=== PATIENT | female | born 1955 | race Caucasian/White ===

== ENCOUNTER → 2016-06-27 | Day surgery (SDC) | payer OTHER | LOC: RAD 12:59 | PROVIDERS: ATTEND Orthopaedic Surgery | PROC: BP0MZZZ Plain Radiography of Left Wrist (ICD-10-PCS; principal; 2016-06-27) | DX: S63.592A Other specified sprain of left wrist, initial encounter (principal); X58.XXXA Exposure to other specified factors, initial encounter; M25.532 Pain in left wrist | CPT/HCPCS: 73222; 73115; 77002; A9576 ==

== ENCOUNTER 2017-04-25 16:23 | Emergency (ER) | payer OTHER ==
--- NOTE | 2017-04-25 16:56 | ER Document Report ---
ED Medical Screen (RME) - General Chief Complaint: Irregular Pulse Stated Complaint: IRREGULAR HEARTBEAT Time Seen by Provider: 04/25/17 16:47 Notes: This 7-year-old female patient past medical history of hypertension type 2 diabetes with no history of coronary artery disease. No family history coronary artery disease. She developed a fast irregular heartbeat yesterday evening it lasted all night long with rates up to 159. It was 132 at the doctor 's office this afternoon. An EKG there showed atrial fibrillation with RVR. She had converted to normal sinus rhythm by the time she arrived into the emergency room. She did have chest tightness and pain during the rapid heart rate through the evening and this morning. Symptoms have gone now that she is back in a normal sinus rhythm. She has never had this in the past. She has never been a smoker. I have greeted and performed a rapid initial assessment of this patient. A comprehensive ED assessment and evaluation of the patient, analysis of test results and completion of the medical decision making process will be conducted by additional ED providers. TRAVEL OUTSIDE OF THE [place] IN LAST 30 DAYS: No - Related Data Allergies/Adverse Reactions: codeine Allergy (Verified 04/25/17 16:30) Past Medical History - Social History Chew tobacco use (# tins/day): No Frequency of alcohol use: None Drug Abuse: None - Past Medical History Cardiac Medical History: Reports: Hx Hypertension Endocrine Medical History: Reports: Hx Diabetes Mellitus Type 2 Renal/ Medical History: Denies: Hx Peritoneal Dialysis Past Surgical History: Reports: Hx Abdominal Surgery - mass in lower ab Physical Exam - Vital signs Vitals: Temp Pulse Resp BP Pulse Ox 97.9 F 81 20 141/78 H 98 04/25/17 16:38 04/25/17 16:38 04/25/17 16:38 04/25/17 16:38 04/25/17 16:38 Course - Vital Signs Vital signs: Temp Pulse Resp BP Pulse Ox 97.9 F 81 20 141/78 H 98 04/25/17 16:38 04/25/17 16:38 04/25/17 16:38 04/25/17 16:38 04/25/17 16:38
--- NOTE | 2017-04-25 17:16 | ER Document Report ---
ED Cardiac - General Chief Complaint: Irregular Pulse Stated Complaint: IRREGULAR HEARTBEAT Time Seen by Provider: 04/25/17 16:47 Notes: The patient is a 61-year-old female, past medical history hypertension, IDDM, presents from her primary care office after she was having palpitations for 12 hours feeling like her heart was racing and was found to be in new onset A. fib with RVR. By the time she got to the ER, she said her palpitations resolved and she was found to be in normal sinus rhythm. Denies chest pain, shortness of breath, leg swelling, fevers, cough, back pain, abdominal pain, nausea, vomiting, numbness, tingling or syncope. TRAVEL OUTSIDE OF THE [place] IN LAST 30 DAYS: No - Related Data Allergies/Adverse Reactions: codeine Allergy (Verified 04/25/17 16:30) Home Medications: Current Home Medications Atenolol [Atenolol] 50 mg PO DAILY 04/25/17 [History] Hydrochlorothiazide [Hydrochlorothiazide] 25 mg PO DAILY 04/25/17 [History] Insulin Glargine,Hum.rec.anlog [Lantus Insulin 100 Unit/mL] 15 units SQ QAM 11/04 [History] Insulin Glargine,Hum.rec.anlog [Lantus Insulin 100 Unit/mL] 20 units SQ QPM 11/04 [History] Lisinopril [Lisinopril] 10 mg PO DAILY 04/25/17 [History] Past Medical History - General Information source: Patient - Social History Smoking Status: Never Smoker Chew tobacco use (# tins/day): No Frequency of alcohol use: None Drug Abuse: None Family History: Reviewed & Not Pertinent Patient has suicidal ideation: No Patient has homicidal ideation: No - Past Medical History Cardiac Medical History: Reports: Hx Hypertension Endocrine Medical History: Reports: Hx Diabetes Mellitus Type 2 Renal/ Medical History: Denies: Hx Peritoneal Dialysis Past Surgical History: Reports: Hx Abdominal Surgery - mass in lower ab Review of Systems - Review of Systems Notes: REVIEW OF SYSTEMS: CONSTITUTIONAL: -fevers, -chills EENT: -eye pain, -difficulty swallowing, -nasal congestion CARDIOVASCULAR: -chest pain, -syncope, +palpitations RESPIRATORY: -cough, -SOB GASTROINTESTINAL: -abdominal pain, - nausea, -vomiting, -diarrhea GENITOURINARY: -dysuria, -hematuria MUSCULOSKELETAL: -back pain, -neck pain SKIN: -rash or skin lesions. HEMATOLOGIC: -easy bruising or bleeding. LYMPHATIC: -swollen, enlarged glands. NEUROLOGICAL: -altered mental status or loss of consciousness, -headache, - neurologic symptoms PSYCHIATRIC: -anxiety, -depression. ALL OTHER SYSTEMS REVIEWED AND NEGATIVE. Physical Exam - Vital signs Vitals: Temp Pulse Resp BP Pulse Ox 97.9 F 81 20 141/78 H 98 04/25/17 16:38 04/25/17 16:38 04/25/17 16:38 04/25/17 16:38 04/25/17 16:38 - Notes Notes: PHYSICAL EXAMINATION: GENERAL: Well-appearing, well-nourished and in no acute distress. HEAD: Atraumatic, normocephalic. EYES: Pupils equal round and reactive to light, extraocular movements intact, sclera anicteric, conjunctiva are normal. ENT: nares patent, oropharynx clear without exudates. Moist mucous membranes. NECK: Normal range of motion, supple without lymphadenopathy LUNGS: Breath sounds clear to auscultation bilaterally and equal. No wheezes rales or rhonchi. HEART: Regular rate and rhythm without murmurs ABDOMEN: Soft, nontender, normoactive bowel sounds. No guarding, no rebound. No masses appreciated. EXTREMITIES: Normal range of motion, no pitting or edema. No cyanosis. NEUROLOGICAL: Cranial nerves grossly intact. Normal speech, normal gait. Normal sensory and motor exams. PSYCH: Normal mood, normal affect. SKIN: Warm, Dry, normal turgor, no rashes or lesions noted. Course - Re-evaluation Re-evalutation: Patient with new onset A. fib with RVR for about 12 hours that spontaneously converted prior to arrival in the ER. She is completely asymptomatic. Her blood work is unremarkable, other than hypomagnesemia (which was corrected in the ER). First troponin was 0.02, patient has no chest pain and this may have been a slight bump from her A. fib with RVR incident. 04/25/17 18:[address] Mascorro (Functional Mental Disability Teacher industry consultant) and he recommends increasing patient's atenolol to 50 mg in the morning and 25 mg in the evening. Also, patient's CHAD2-VASC score is 3 and he recommends beginning patient on Eliquiis or Coumadin. Spoke to patient about risks and benefits of both drugs and she would like to begin Eliquiis. Provided patient with Dr. Mascorro's cell phone number and instructed her to call his office tomorrow for an appointment and call his cell phone if unable to obtain an appointment. - Vital Signs Vital signs: Temp Pulse Resp BP Pulse Ox 97.9 F 81 20 141/78 H 98 04/25/17 16:38 04/25/17 16:38 04/25/17 16:38 04/25/17 16:38 04/25/17 16:38 - Laboratory Result Diagrams: 04/25/17 17:02 04/25/17 17:02 Laboratory results interpreted by me: 04/25/17 17:02 Glucose 165 H Magnesium 1.4 L AST 49 H ALT 83 H - Diagnostic Test Radiology reviewed: Image reviewed, Reports reviewed Radiology results interpreted by me: CXR: NAD - EKG Interpretation by Me EKG shows normal: Sinus rhythm, Dawn, Intervals, QRS Complexes, ST-T Waves Rate: Normal Discharge - Discharge Clinical Impression: Hypomagnesemia Atrial fibrillation Qualifiers: Atrial fibrillation type: paroxysmal Qualified Code(s): I48.0 - Paroxysmal atrial fibrillation Condition: Stable Disposition: HOME, SELF-CARE Additional Instructions: Call Dr. Grajeda's office for an appointment. If you are able to get an appointment with the office, call his cell phone ([phone]). Take 50 mg Atenolol in the morning and 25 mg Atenolol in the evening. Also, take 5 mg Eliquiis twice daily as a blood thinner. Return to the ER if you have any worsening symptoms. Atrial Fibrillation Atrial fibrillation is an abnormal heart rhythm, caused by irregular electrical circuits in the upper heart chamber. It can be caused by heart valve disease, hardening of the arteries, or metabolic problems such as thyroid disease, or may occur without a clear cause. Atrial fibrillation may occur only occasionally, or may be chronic. Atrial fibrillation often results in a very fast heart rate, with palpitations, lightheadedness, and shortness of breath. Treatment is to slow the abnormally fast rate, and to convert the rhythm back to normal, if possible. Many patients stay in atrial fibrillation for years without symptoms or complications. Your doctor will decide whether you can be converted back to a normal heart rhythm. Contact the doctor or emergency medical system at once if you develop chest pain, shortness of breath, or severe lightheadedness, or if you develop any disturbance of consciousness, problems with speech, or localized weakness. Prescriptions: Apixaban [Eliquis 5 mg Tablet] 5 mg PO BID 7 Days tablet Atenolol [Tenormin] 25 mg PO QPM 7 Days tablet Forms: Elevated Blood Pressure Referrals: SHAW ARROYO MD [Primary Care Provider] - Follow up as needed KIMBERLY GRAJEDA MD [ACTIVE STAFF] - Follow up as needed
[2017-04-25 17:22] LABS: ABSOLUTE BASOPHILS # (AUTO) 0.1 10^3/uL (0.0-0.2); ABSOLUTE EOSINOPHILS # (AUTO) 0.1 10^3/uL (0.0-0.6); ABSOLUTE LYMPHOCYTES (AUTO) 2.3 10^3/uL (0.5-4.7); ABSOLUTE MONOCYTES (AUTO) 0.7 10^3/uL (0.1-1.4); ABSOLUTE NEUT (AUTO) 4.6 10^3/uL (1.7-8.2); BASOPHILS % (AUTO) 0.8 % (0-2); EOSINOPHILS % (AUTO) 1.7 % (0-6); HEMATOCRIT 42.2 % (36.0-47.0); HEMOGLOBIN 14.3 g/dL (12.0-15.5); HGB HCT DIFFERENCE 0.7; LYMPHOCYTES % (AUTO) 29.6 % (13-45); MEAN CORPUSCULAR HEMOGLOBIN 28.5 pg (27.0-33.4); MEAN CORPUSCULAR VOLUME 84 fl (80-97); MONOCYTES % (AUTO) 8.6 % (3-13); RED BLOOD COUNT 5.02 10^6/uL (3.72-5.28); SEGMENTED NEUTROPHILS % (AUTO) 59.3 % (42-78); WHITE BLOOD COUNT 7.7 10^3/uL (4.0-10.5)
[2017-04-25 17:28] LABS: PROTHROMBIN TIME 13.7 SEC (11.4-15.4)
[2017-04-25 17:39] LABS: ALANINE AMINOTRANSFERASE 83 U/L (9-52); ALBUMIN 3.9 g/dL (3.5-5.0); ALKALINE PHOSPHATASE 87 U/L (38-126); ANION GAP 12 (5-19); ASPARTATE AMINO TRANSFERASE 49 U/L (14-36); BILIRUBIN,DIRECT 0.4 mg/dL (0.0-0.4); BILIRUBIN,TOTAL 0.6 mg/dL (0.2-1.3); BLOOD UREA NITROGEN 16 mg/dL (7-20); CALCIUM 9.7 mg/dL (8.4-10.2); CARBON DIOXIDE 29 mmol/L (22-30); CHLORIDE 103 mmol/L (98-107); CREATINE KINASE 48 U/L (30-135); CREATININE RESULT 0.71 mg/dL (0.52-1.25); GLUCOSE 165 mg/dL (75-110); MAGNESIUM 1.4 mg/dL (1.6-2.3); POTASSIUM 3.7 mmol/L (3.6-5.0); SODIUM 144.2 mmol/L (137-145); TOTAL PROTEIN 6.7 g/dL (6.3-8.2)
--- NOTE | 2017-04-25 17:40 | RADIOLOGY REPORT (SQ) ---
EXAM DESCRIPTION: CHEST SINGLE VIEW COMPLETED DATE/TIME: 04/25/2017 5:31 pm REASON FOR STUDY: New onset atrial fibrillation with RVR COMPARISON: None. EXAM PARAMETERS: NUMBER OF VIEWS: One view. TECHNIQUE: Single frontal radiographic view of the chest acquired. RADIATION DOSE: NA LIMITATIONS: None. FINDINGS: LUNGS AND PLEURA: No opacities, masses or pneumothorax. No pleural effusion. MEDIASTINUM AND HILAR STRUCTURES: No masses. Contour normal. HEART AND VASCULAR STRUCTURES: Heart normal in size. Normal vasculature. BONES: No acute findings. HARDWARE: None in the chest. OTHER: No other significant finding. IMPRESSION: NO ACUTE RADIOGRAPHIC FINDING IN THE CHEST. TECHNICAL DOCUMENTATION: JOB ID: [id number] [email or web address]- All Rights Reserved
[2017-04-25] MEDS ORDERED: MAGNESIUM SULFATE 4 GM/100 ML RTUPB IV ONE (18:02)
[2017-04-25] MEDS ORDERED: APIXABAN 5 MG TABLET PO ONE (18:45)
[2017-04-25] MEDS ORDERED: ATENOLOL 50 MG TABLET PO ONE (18:45)
[2017-04-25 19:46] VITALS: BP 125/79
--- NOTE | 2017-04-25 20:28 | EKG REPORT ---
SEVERITY:- NORMAL ECG - SINUS RHYTHM : Confirmed by: Digna Tanner 25-Apr-2017 20:28:03
== END 2017-04-25 19:23 | disposition home or self-care (01) ==
LOC: ER 16:23
DX: I48.0 Paroxysmal atrial fibrillation (principal); E83.42 Hypomagnesemia; I10 Essential (primary) hypertension; E11.9 Type 2 diabetes mellitus without complications; Z88.5 Allergy status to narcotic agent; Z79.899 Other long term (current) drug therapy
CPT/HCPCS: 93005; 99285; 96365; 36415; 82550; 83735; 84443; 85025; 85610; 80053; 84484; 71010; 93010; J3475

== ENCOUNTER → 2017-05-28 | Outpatient (CLI) | payer OTHER ==
--- NOTE | 2017-05-28 17:49 | DRAGON STRESS TEST REPORT ---
Exercise EKG treadmill stress test. Data procedure: 05/28/2017. Ordering Provider: Dr. Kimberlyn Grajeda. Patient Status: Out Patient. Indication: Chest Pressure, paroxysmal Atrial Fibrillation. coronary risk factors:. Age, hypertension, and diabetes mellitus. Significant physical findings prior to stress testing showed a blood pressure of 102/64,and a heart rate of 74 beats per minute. Auscultation of the heart shows normal S1 and S2.NoS3. Or S4 gallops. Systolic murmur in the left sternal border and apex. Lungs are clear to auscultation and percussion. Resting 12-lead EKG:. Sinus Rhythm. Within Normal Limits. Procedure: The patient was excised on a standard Lenin protocol. . The patient walked a total of 5 minutes and 36 seconds on this protocol and reached a peak heart rate of 136 beats per minute, which is 86% of maximum predicted heart rate for age. This is at a workload of 7 METS. The test was stopped because of achievement of 85% of maximum predicted heart rate for age. The patient had no symptoms of chest pain or shortness of breath, and there was no recurrence of atrial fibrillation. Exercise EKG's show: No EKG evidence of exercise-induced myocardial ischemia.. Arrhythmias seen:None. Especially no recurrence of atrial fibrillation. The blood pressure response was normal. At peak exercise the blood pressure was 120/70 millimeters of Hg. The double product was 16.32 k. Summary of findings and interpretation: 1. No chest pain or chest discomfort symptoms reproduced. 2. No EKG evidence of ischemia in the form of ST segment depression. 3. Normal blood pressure response. 4. No arrhythmias seen. Especially no recurrence of atrial fibrillation 5. Fair exercise tolerance, fair aerobic capacity. Diagnostic treadmill stress test negative for ischemia by EKG criteria. Recommendations: Aggressive risk factor modification, and treatment of underlying co-morbidities. MTDD
== END ==
LOC: SP 08:30
PROVIDERS: ATTEND Specialist
DX: R07.9 Chest pain, unspecified (principal); I48.91 Unspecified atrial fibrillation; I10 Essential (primary) hypertension; E11.9 Type 2 diabetes mellitus without complications
CPT/HCPCS: 93017